=== PATIENT | female | born 1960 | race Caucasian/White ===

== ENCOUNTER 2018-12-03 10:36 | Observation (INO) ==
--- NOTE | 2018-12-03 13:34 | Diag Imaging Result Doc PS360 ---
EXAM: CT HEAD W/O CONTRAST INDICATION: dizziness TECHNIQUE: This exam was performed using automated exposure control, adjustment of mA or kV according to patient size, and/or use of iterative reconstruction technique. COMPARISON: None. FINDINGS: There is no definite acute infarct given the limited sensitivity of CT versus MRI. There is no discrete intracranial mass, mass effect, or intracranial hemorrhage. The surrounding soft tissues and bony structures are essentially unremarkable. IMPRESSION: No evidence of acute intracranial pathology. Electronically signed by James Webster 12/03/2018 1:32 PM
[2018-12-03 14:14] LABS: BASO# 0.05 X1000 (0.0-0.2); BASO% 0.3 % (0.0-0.8); EOS% 1.2 % (0.0-10.0); HEMATOCRIT 44.5 % (37.0-47.0); HEMOGLOBIN 14.8 g/dL (12.0-16.0); IMM GRAN# 0.27 X1000 (0.0-0.04); IMM GRAN% 1.6 % (0.0-0.5); LYMPH% 7.6 % (20.5-51.1); MCH 29.7 PG (27-31); MCHC 33.3 g/dL (33-37); MCV 89.2 FL (81-99); MONO# 0.82 X1000 (0.11-0.59); MONO% 4.8 % (1.7-9.3); MPV 11.5 FL (7.4-10.4); NEUT% 84.5 % (42.2-75.2); PLT 354 X1000 (130-400); RBC 4.99 XMIL (4.2-5.4); RDW 14.9 % (11.5-14.5); WBC 17.04 X1000 (4.8-10.8)
[2018-12-03] MEDS ORDERED: NS 1,000 ML IV ONE (14:18)
--- NOTE | 2018-12-03 14:18 | PROVIDER DOCUMENTATION ---
HPI-General Adult - General Chief Complaint: Fall Stated Complaint: FALL,DIZZINESS,SHAKING Time Seen by Provider: 12/03/18 13:09 Source: patient Allergies/Adverse Reactions: Patient Allergies Allergy/AdvReac Type Severity Reaction Status Date / Time No Known Allergies Allergy Verified 12/03/18 10:56 Home Medications: Home Medication List Medication Instructions Recorded Confirmed Last Taken Type Albuterol Sulfate [Ventolin Hfa] 18 gm INHALATION PRN PRN 12/03/18 12/03/18 Unknown History Atorvastatin Calcium 20 mg PO DAILY 12/03/18 12/03/18 Unknown History Budesonide/Formoterol Fumarate 10.2 gm INHALATION 4XDAY 12/03/18 12/03/18 Unknown History [Symbicort 160-4.5 Mcg Inhaler] Citalopram [Celexa] 40 mg PO DAILY 12/03/18 12/03/18 Unknown History Cyclobenzaprine [Flexeril] 10 mg PO PRN PRN 12/03/18 12/03/18 Unknown History Etodolac [Lodine] 400 mg PO BID 12/03/18 12/03/18 Unknown History Fexofenadine [Kenna] 180 mg PO DAILY 12/03/18 12/03/18 Unknown History Gabapentin [Neurontin] 300 mg PO BID 12/03/18 12/03/18 Unknown History Hydrocodone/APAP 7.5 mg/325 mg 2 ea PO BID 12/03/18 12/03/18 Unknown History [[place]-7.5] Lisinopril/Hydrochlorothiazide 1 tab PO DAILY 12/03/18 12/03/18 Unknown History [Zestoretic 20-12.5 mg Tablet] Lorazepam [Ativan] 0.5 mg PO PRN PRN 12/03/18 12/03/18 Unknown History Meloxicam [Mobic] 15 mg PO DAILY 12/03/18 12/03/18 Unknown History Metoprolol Tartrate 2 tab PO DAILY 12/03/18 12/03/18 Unknown History Montelukast Sodium [Singulair] 10 mg PO DAILY 12/03/18 12/03/18 Unknown History Omeprazole [Prilosec] 20 mg PO DAILY 12/03/18 12/03/18 Unknown History Tiotropium [place] [Spiriva 4 gm INHALATION BID 12/03/18 12/03/18 Unknown History Respimat] Tramadol [Ultram] 1 tab PO PRN PRN 12/03/18 12/03/18 Unknown History Vitamin A/Vitamin D3 [Natural Vit 1 ea PO DAILY 12/03/18 12/03/18 Unknown History D 400 Unit Softg] - History of Present Illness -Gen Adult Nature of Presenting Problems: 57 yr old F, hx of HTN, restless leg syndrome, presents with sudden onset generalized tremors and jerking that started yesterday. The patient states she was in the shower when her knees buckled and she fell. She denies LOC, dizziness, chest pain, headache. She reports that the jerking started in her arms bilaterally later one, and persisted this morning, causing her to drop two cups of coffee. She also reports falling two more times, continuing to deny dizziness, LOC, headache, chest pain. She reports being recently treated for a UTI (approximately 5 days ago), but has not started any new medication recently. She reports having blood work done at her PCP 3 months ago, and was told at the time that "all my numbers were good". Onset/Duration: reports: 24 hours ago Timing: reports: still present Similar Symptoms Previously?: No Recently seen or treated by another doctor?: No Review of Systems - Adult - REVIEW OF SYSTEMS - ADULT Constitutional: reports: no symptoms reported Eyes: reports: no symptoms reported Ears, Nose, Mouth & Throat: reports: no symptoms reported Cardiovascular: reports: no symptoms reported Respiratory: reports: no symptoms reported Gastrointestinal: reports: no symptoms reported Genitourinary: reports: dysuria Musculoskeletal: reports: frequent leg cramps Integumentary: reports: no symptoms reported Neurological: reports: tremors. denies: dizziness/vertigo, headache/migraines Past History - Adult - PAST MEDICAL HISTORY-ADULT Review of Records: reports: Old Records Reviewed, Nursing Assessment Review, Medications Reviewed Major Childhood Illnesses: reports: denies history Cardiovascular: reports: HTN Respiratory: reports: asthma Neurological: denies: CVA - SOCIAL HISTORY Smoking: denies Substance Use: denies Physical Exam-General - PHYSICAL EXAM-ADULT Initial Vital Signs Reviewed: Yes - CONSTITUTIONAL General Appearance: appears well, alert, no apparent distress - EYES Eyes: PERRL/EOMI - HEAD, EARS, NOSE, MOUTH & THROAT HENMT: normocephalic/atraumatic, moist mucous membranes - RESPIRATORY Respiratory: lungs clear, normal breath sounds - CARDIOVASCULAR Cardiovascular: regular rate, rhythm - GASTROINTESTINAL (ABDOMEN) Abdominal Exam: normal bowel sounds, non tender, soft - MUSCULOSKELETAL Extremity: normal gait, other (intermittent, subtle jerks and tremors of the upper extremities (fingers) noted) - SKIN Integumentary: warm/dry - NEUROLOGIC Neurologic: grossly normal, no motor/sensory deficits - PSYCHIATRIC Psych/Mental Status: normal mood/affect, oriented x 3 Progress - PLAN OF CARE/RESULTS Progress/Plan/Lab Results: Vital Signs - 8 hr 12/03/18 10:51 12/03/18 14:13 Temperature 98.3 F Pulse Rate 96 H Pulse Rate [Sitting] 94 H Pulse Rate [Standing] 95 H Pulse Rate [Supine] 92 H Respiratory Rate 22 Blood Pressure 108/59 Blood Pressure [Sitting] 112/66 Blood Pressure [Standing] 99/62 Blood Pressure [Supine] 103/57 O2 Sat by Pulse Oximetry 95 Laboratory Results - last 24 hr 12/03/18 13:56 WBC 17.04 H RBC 4.99 Hgb 14.8 Hct 44.5 MCV 89.2 MCH 29.7 MCHC 33.3 RDW Std Deviation 14.9 H Plt Count 354 MPV 11.5 H Immature Gran % (Auto) 1.6 H Neut % (Auto) 84.5 H Lymph % (Auto) 7.6 L [place] % (Auto) 4.8 Eos % (Auto) 1.2 Baso % (Auto) 0.3 Immature Gran # (Auto) 0.27 H Neut # (Auto) 14.40 H Lymph # (Auto) 1.30 [place] # (Auto) 0.82 H Eos # (Auto) 0.20 Baso # (Auto) 0.05 Orders Category Date Time Status Orthostatic Vital Signs NOW Care 12/03/18 13:16 Active CHEST-1 VIEW [RAD] Stat Exams 12/03/18 14:[address] HEAD W/O CONTRAST [CT] Stat Exams 12/03/18 13:15 Completed CBC WITH ELECTRONIC DIFF [HEME] Stat Lab 12/03/18 13:56 Completed CK PROFILE [SP CHEM] Stat Lab 12/03/18 13:58 Received COMPREHENSIVE METABOLIC PANEL [CHEM] Stat Lab 12/03/18 13:58 Received MAGNESIUM [CHEM] Stat Lab 12/03/18 13:58 Received PROTIME WITH INR [COAG] Stat Lab 12/03/18 13:56 Received PTT [COAG] Stat Lab 12/03/18 13:56 Received TROPONIN T Stat Lab 12/03/18 13:56 Received EKG [EKG] Stat Ther 12/03/18 13:15 Ordered Labs reveal elevated Bun/Cr, hyperkalemia, hyperphosphatemia. Spoke with Dr. Randolph and Yanci for the hospitalist admitting service. Discussed results and plan with the patient and her . They verbalized understanding and agreement. Result Diagrams: 12/03/18 13:56 12/03/18 13:56 - EKG 1 Time of EKG reading by physician:: 14:50 EKG Read and Signed by:: Lasha Vigil EKG Interpretation (*Must complete 3 of following elements*): Normal Rate: 93 Rhythm: sinus QRS: normal MI Interval: normal ST Wave: normal - CT/MRI 1 CT Study: Head Impression: See EMR Report (no acute findings) - CONSULTS/PCP/HOSPITALIST Notification #1 *Consult/PCP/Hospitalist*: Dr. Randolph Time Discussed: 15:00 Consult Disposition: other (will see pt in hospital tomorrow) #2 Consult: Yanci Time Discussed: 15:15 Consult Disposition: Admit Departure - Departure Date of Disposition Decision: 12/03/18 Time of Disposition Decision: 16:03 DIAGNOSIS: MAYA (acute kidney injury), Tremor Disposition: ADMITTED INPATIENT 09 Certified Medical Emergency: Emergent Condition: Fair Referrals and Follow-Ups: Luis Bustamante [Primary Care Provider] - - Critical Care Note This patient required my direct & personal management of CC.: No Attestation - Physician/ BELLO Attestation Patient care was provided by Advanced Practice Provider:: No The physician spent face to face time with patient:: Yes Advanced Practice Provider documentation review:: Supervising physician onsite and consulted in the evaluation and care of this patient. The physician did have a face to face encounter with the patient.
[2018-12-03 14:22] LABS: INR 1.01; PROTIME 13.4 Seconds (11.0-16.0)
[2018-12-03 14:23] LABS: PTT 25.9 Seconds (22.3-41.8)
[2018-12-03 14:35] LABS: ALBUMIN 3.1 g/dL (3.5-5.0); CALCIUM 7.9 mg/dL (8.8-10.2); CREATININE 5.6 mg/dL (0.5-0.9); MAGNESIUM 2.7 mg/dL (1.5-2.7); POTASSIUM 5.3 mmol/L (3.5-5.1); TOTAL BILIRUBIN 1.34 mg/dL (0.20-1.00); TOTAL PROTEIN 6.2 g/dL (6.3-8.3)
--- NOTE | 2018-12-03 14:56 | Diag Imaging Result Doc PS360 ---
EXAM: CHEST-1 VIEW INDICATION: fall TECHNIQUE: One view COMPARISON: 08/12/2017 FINDINGS: The lungs are grossly clear. There is no discrete pleural fluid collection or pneumothorax. The cardiomediastinal silhouette and central vasculature are grossly unremarkable. IMPRESSION: No evidence of acute pathology by plain radiograph. Electronically signed by James Webster 12/03/2018 2:54 PM
[2018-12-03] MEDS ORDERED: NORCO-7.5 PO PRN (15:21)
[2018-12-03] MEDS ORDERED: ZOFRAN IV PRN (15:21)
[2018-12-03] MEDS ORDERED: TYLENOL PO PRN (15:21)
[2018-12-03] MEDS ORDERED: VENTOLIN HFA INH PRN (15:21)
[2018-12-03 16:07] LABS: URINE SOURCE CLEAN CATCH
[2018-12-03 16:14] LABS: UR EPITHELIAL CELLS <10 /HPF (<10); URINE BACTERIA NEGATIVE /HPF; URINE RBC <10 /HPF (<10); URINE WBC TNTC /HPF (<10)
[2018-12-03 16:21] LABS: BILIRUBIN URINE MODERATE (NEGATIVE); BLOOD URINE TRACE (NEGATIVE); COLOR YELLOW; GLUCOSE URINE NEGATIVE (NEGATIVE); KETONE URINE NEGATIVE (NEGATIVE); LEUKOCYTES URINE LARGE (NEGATIVE); NITRITE URINE NEGATIVE (NEGATIVE); PROTEIN URINE 30 mg/dL (NEGATIVE); SP GRAVITY URINE 1.017; TURBIDITY URINE CLEAR (CLEAR); UROBILINOGEN URINE 2 mg/dL (NORMAL)
[2018-12-03 16:22] LABS: PROTEIN CREAT RATIO 0.3; UR CREAT RANDOM 98.8 mg/dL (11-20); UR PROT RANDOM 25.5 mg/dL
--- NOTE | 2018-12-03 16:34 | Diag Imaging Result Doc PS360 ---
EXAM: US RENAL 2 (RETROPER) COMPLETE INDICATION: renal failure TECHNIQUE: COMPARISON: None. FINDINGS: The kidneys are grossly normal in echotexture with no discrete renal mass or hydronephrosis. The right kidney measures 8.8 cm and the left kidney measures 11.3 cm in the greatest longitudinal axes. Right renal cortex measures 7 mm and the left renal cortex measures 9 mm in thickness. The urinary bladder is only slightly distended. It is grossly unremarkable, otherwise. The prevoid bladder volume is 17.2 cc. After voiding, the bladder was completely collapsed. IMPRESSION: Somewhat atrophic right kidney as compared to the left. Unremarkable renal ultrasound, otherwise. Electronically signed by James Webster 12/03/2018 4:32 PM
[2018-12-03] MEDS ORDERED: SYMBICORT 160/4.5 MICROGM INHALER INH SCH (17:00)
--- NOTE | 2018-12-03 17:55 | HISTORY AND PHYSICAL ---
PRIMARY CARE PROVIDER: Luis Bustamante MD. CHIEF COMPLAINT: More confused, muscle jerking, and tremors with fall since yesterday, strength down, having burning with urination. HISTORY OF PRESENT ILLNESS: Ms. Amy Willis is a 57-year-old female with a medical history of chronic pain syndrome, arthritis on chronic NSAID use, anxiety, seasonal allergies, GERD, asthma, restless legs syndrome, and kidney stones which she has been having issues with since 3 years ago, now presents with complaints that since yesterday she has had some short-term memory, some confusion, tremors, jerky movements in her arms, and she has had 2 falls with it, never hit her head. Still [place] when she has urination. Apparently she was treated with Cipro 5 days ago. She claims to have taken all of her antibiotics. Apparently last week she had some left flank pain and passed 3 kidney stones. She has been on all these medications that can be nephrotoxic. So, workup revealed that she has an acute kidney injury with a creatinine of 5.6 and back in September 2017 it was 1.2. She had an ultrasound of the kidneys which shows somewhat atrophic right kidney compared to the left but otherwise unremarkable. Dr. Randolph is aware of the patient's admission. We will give her IV fluids. We will hold nephrotoxic medications. She does have leukocytosis that could be reactive but she has white blood cells in her urine and she is complaining of burning with urination, so she probably has a urinary tract infection. PAST MEDICAL HISTORY: 1. CKD stage 3. Looks like her baseline creatinine is 1.2. 2. Chronic pain syndrome of the hips with arthritis. 3. Anxiety. 4. Seasonal allergies. 5. Hyperlipidemia. 6. Kidney stones that started around 3 years ago and just passed 3 last week. 7. Hypertension. 8. GERD. 9. Asthma. 10. Restless legs syndrome. PAST SURGICAL HISTORY: 1. section x2. 2. Bilateral rotator cuff repair. 3. Cholecystectomy. 4. Colonoscopy [address] Dumont. SOCIAL HISTORY: Denies tobacco, alcohol, or illicit drug use. Her of 37 years is at the bedside. She is a teacher for [employer]. She gets around with a cane at home. FAMILY HISTORY: Mother had coronary disease that started at the age of 65, along with cardiac stents. Father was in his 60s when he had coronary disease with cardiac stents. She had a brother that at the age of 2 from glioblastoma. ALLERGIES: Penicillin, reaction unknown. HOME MEDICATIONS: 1. [place] 180 mg p.o. daily. 2. Ativan 0.5 mg p.o. p.r.n. 3. Atorvastatin calcium 20 mg p.o. daily. 4. Celexa 40 mg p.o. daily. 5. Flexeril 10 mg p.o. p.r.n. 6. Lodine 400 mg p.o. twice a day. 7. Metoprolol tartrate 50 mg p.o. daily. 8. Mobic 15 mg p.o. daily. 9. Vitamin D once daily. 10. Neurontin 300 mg p.o. twice daily. 11. [place] 7.5 two tablets p.o. twice daily. 12. Prilosec 20 mg p.o. daily. 13. Singulair 10 mg p.o. daily. 14. Spiriva 4 mg inhaled twice a day. 15. Symbicort 160/4.5 inhaled 4 times a day. 16. Ultram 50 mg p.o. p.r.n. 17. Albuterol 18 g inhaled p.r.n. 18. Lisinopril/hydrochlorothiazide 20/12.5 mg 1 tablet p.o. daily. REVIEW OF SYSTEMS: Fourteen point review of systems are complete and all were negative except for those mentioned above in HPI. PHYSICAL EXAMINATION: VITAL SIGNS: Temperature 98.3 degrees, heart rate 96, respiratory rate 22, blood pressure 108/59, O2 saturation 95% on room air. GENERAL: Ms. Amy Willis is a 57-year-old female. She is in no acute distress. She is able answer most questions appropriately. HEENT: Atraumatic, normocephalic. Pupils equal, round, reactive to light. Extraocular movements intact. Mucous membranes are dry. NECK: Trachea midline. CARDIOVASCULAR: S1, S2. Regular rate and rhythm. No rubs, gallops, or murmurs. No lower extremity edema. There are +2 dorsalis and radial pulses. Negative JVD or carotid bruits. PULMONARY: Clear to auscultation. Bilateral breath sounds. No accessory muscle use or work of breathing noted. GI: Soft, nontender, nondistended. Positive bowel sounds x4. EXTREMITIES: Moves all extremities equally. Decreased range of motion. NEUROLOGIC: A O x3. Follows commands. Sensory is intact. SKIN: Warm, dry, intact. LABORATORY DATA: White blood cells 17,000, hemoglobin 14, hematocrit 44, platelet count 354,000. INR is 1.01. PTT is 25.9. Sodium 138, potassium 5.3, BUN 9, creatinine 5.6, glucose 104, calcium 7.9, phosphorus. 5.3, magnesium 2.7, bilirubin 1.34, AST 32, ALT 32, CK 38. Troponin less than 0.01. Albumin 3.1. Urinalysis, 30 protein, trace blood, moderate bilirubin, 2 urobilinogen. Dipstick: Large leukocytes, too numerous to count white blood cells, negative bacteria. Random creatinine of 98.8. Protein 25.2 on the urine with a protein creatinine ratio 0.3. IMAGING: Head CT negative. Chest x-ray negative for any acute findings. Renal ultrasound: Right kidney is atrophic compared to the left but otherwise negative for acute findings. ASSESSMENT AND PLAN: 1. Acute kidney injury on chronic kidney disease stage 3. It looks like her creatinine baseline is 1.2. She presents with a creatinine of 5.6 and uremic symptoms. She has jerky muscle, tremors, some mild confusion. She also has burning with urination and recently passed 3 kidney stones last week, that was after having left flank pain. On top of that, she also is on medications that can be nephrotoxic in a dehydration situation and she has diarrhea about once every 3 days. We will give her IV fluid hydration. We will do some urine studies. Her renal ultrasound shows somewhat of an atrophic right kidney compared to the left. necessarily there is no renal stenosis or medical renal disease. Hopefully with holding some of her medications and giving her IV fluids she will quickly rebound. 2. Kidney stones. She apparently passed 3 last week when she was having some left-sided flank pain and that has resolved. 3. Hypertension. We are going to hold some of her antihypertensives. 4. Hyperlipidemia. Will hold the statin for now. She actually has an elevated bilirubin and she is spilling a little bilirubin into the urine. 5. Hyperbilirubinemia. Currently just going to hold off on her statin and hopefully IV fluids will reverse that. 6. Asthma. No signs or symptoms of exacerbation. We will continue home medications for that. 7. Gastroesophageal reflux disease. Continue with Prilosec. Zofran if needed. 8. Anxiety. We will continue her Celexa. 9. Recent urinary tract infection. Still complains of burning with urination and she has leukocytosis. We will consider adding an antibiotic. She has a culture pending. Dictated by TIMMY Moraes for Miguel Ángel Polo MD cc: TIMMY Moraes MD MTD
[2018-12-03] MEDS ORDERED: LEVAQUIN 500 MG/D5W 500 MG/100 ML IVPB IV ONE (18:06)
--- NOTE | 2018-12-03 18:44 | EKG Report ---
Test Performed on : 12/03/2018 2:48:05 PM Test Reason : dizziness Blood Pressure : / mmHG Vent. Rate : 093 BPM Atrial Rate : 093 BPM P-R Int : 154 ms QRS Dur : 088 ms QT Int : 362 ms P-R-T Axes : 030 037 008 degrees QTc Int : 450 ms Normal sinus rhythm. Normal ECG No previous ECGs available Unconfirmed Result
[2018-12-03] MEDS ORDERED: LIPITOR PO SCH (21:00)
[2018-12-03] MEDS ORDERED: TIOTROPIUM BROMIDE 4 GM inhalation SCH (21:00)
[2018-12-03] MEDS: NS 1,000 ML IV SCH (21:43)
[2018-12-04] MEDS: ROCEPHIN 1 GM in NS 50 ML IV SCH (01:25)
[2018-12-04 07:25] LABS: BASO# 0.07 X1000 (0.0-0.2); BASO% 0.4 % (0.0-0.8); EOS# 0.32 X1000 (0.0-0.7); EOS% 1.9 % (0.0-10.0); HEMATOCRIT 41.9 % (37.0-47.0); HEMOGLOBIN 13.7 g/dL (12.0-16.0); IMM GRAN# 0.37 X1000 (0.0-0.04); IMM GRAN% 2.1 % (0.0-0.5); LYMPH# 1.54 X1000 (1.2-3.4); LYMPH% 8.9 % (20.5-51.1); MCH 29.3 PG (27-31); MCHC 32.7 g/dL (33-37); MCV 89.7 FL (81-99); MONO# 1.03 X1000 (0.11-0.59); MPV 11.7 FL (7.4-10.4); NEUT# 13.91 X1000 (1.4-6.5); NEUT% 80.7 % (42.2-75.2); PLT 343 X1000 (130-400); RBC 4.67 XMIL (4.2-5.4); RDW 14.9 % (11.5-14.5); WBC 17.24 X1000 (4.8-10.8)
[2018-12-04 07:37] LABS: ALB/GLOB RATIO 0.6; ALBUMIN 2.6 g/dL (3.5-5.0); CALCIUM 7.7 mg/dL (8.8-10.2); CREATININE 4.6 mg/dL (0.5-0.9); MAGNESIUM 2.3 mg/dL (1.5-2.7); POTASSIUM 4.6 mmol/L (3.5-5.1); TOTAL BILIRUBIN 0.98 mg/dL (0.20-1.00); TOTAL PROTEIN 6.6 g/dL (6.3-8.3)
--- NOTE | 2018-12-04 07:38 | EKG Report ---
Test Performed on : 12/04/2018 07:17:50 AM Test Reason : chest pain Blood Pressure : / mmHG Vent. Rate : 099 BPM Atrial Rate : 099 BPM P-R Int : 150 ms QRS Dur : 090 ms QT Int : 352 ms P-R-T Axes : 057 058 034 degrees QTc Int : 451 ms Normal sinus rhythm. Normal ECG When compared with ECG of 03-DEC-2018 14:48, (Unconfirmed) No significant change was found Confirmed by Kayode RAY, Krish Hancock ([id number]) on 12/06/2018 9:39:43 PM
[2018-12-04] MEDS: VITAMIN D PO SCH (08:12)
[2018-12-04] MEDS: CELEXA PO SCH (08:12)
[2018-12-04] MEDS: PRILOSEC PO SCH (08:12)
[2018-12-04] MEDS: NS 1,000 ML IV SCH ×5 (08:13→21:33)
--- NOTE | 2018-12-04 08:18 | PROGRESS NOTE ---
DATE: 12/04/2018 SUBJECTIVE: This patient feels much better compared with yesterday. She is not having jerking movements. As per the patient, she has not been confused, and she feels much better. Also, she states that she has been making urine, and she has been walking to the bathroom, but it looks like we are not monitoring the urine output, so I requested again a strict in and out on in this patient. OBJECTIVE: Vital Signs: Temperature 98.1 degrees, pulse 102, respiratory rate 16, blood pressure 122/64, oxygen saturation 99 on room air. HEENT: Head normocephalic. No trauma. PERRLA. Neck: Supple. No JVD. No masses. Central trachea. Chest: Clear to auscultation. No wheezing. No rales. Abdomen: Soft. Some tenderness to palpation at the level of the periumbilical area. Extremities: No edema, no clubbing, no cyanosis. Neurological: The patient is alert. She is oriented x3. No focal deficits. LABORATORY DATA: WBC 17.2, hemoglobin 13.7, hematocrit 41.9, platelets 343,000. Sodium 139, potassium 4.4, chloride 107, bicarbonate 18, BUN 83, creatinine 4.6, glucose 76, calcium 7.7, albumin 2.6. ASSESSMENT AND PLAN: 1. Acute kidney injury on chronic kidney disease. We have a previous creatinine result on 09/2017 that was 1.2. When she came in, it was 5.6, and today is 4.6, which is getting better. Also, she came in with a little bit of elevated potassium level, which is resolved. She is feeling better. I will continue with intravenous fluids. Nephrology Department on board. 2. Tremors with mild confusion, resolved. 3. History of kidney stones. Apparently, she passed 3 last week, and she was having some left flank pain, but that resolved. 4. Hypertension. She came in a little bit hypotensive. We are holding her blood pressure medications. She seems to be more stable. 5. Hyperlipidemia. We are holding the statin for now due to her elevated liver function tests. 6. Elevated liver function tests as above. Bilirubin level, AST, and alkaline phosphatase were elevated upon admission. Now has resolved, except the alkaline phosphatase that is 141, which is better. 7. History of asthma. Continue with the same management. No issues at this moment. 8. Gastroesophageal reflux disease. Continue with Prilosec and Zofran as needed. 9. Anxiety. Continue with Celexa. 10. Recent urinary tract infection. She is still complaining of burning sensation with urination, and she has leukocytosis, elevated white blood cell in the urine as well. She has been placed on ceftriaxone for now. Blood culture and urine culture are negative. cc: Miguel Ángel Polo MD
[2018-12-04 08:20] LABS: INR 1.02; PROTIME 13.5 Seconds (11.0-16.0)
[2018-12-04 08:21] LABS: PTT 27.5 Seconds (22.3-41.8)
[2018-12-04] MEDS: ALLEGRA PO SCH (11:02)
[2018-12-04] MEDS: SINGULAIR PO SCH (11:02)
[2018-12-04 20:00] LABS: UR PROT RANDOM 12.1 mg/dL
--- NOTE | 2018-12-04 20:51 | NEPHROLOGY CONSULTATION ---
DATE: 12/04/2018 REASON FOR ADMISSION: Confusion with recent falls, muscle tremors and burning with urination . REASON FOR CONSULT: Evaluate and treat acute kidney injury. CONSULTING PHYSICIAN: Dr. Skye Paniagua. TIME SEEN: 729 HPI: Ms Willis is a 57-year-old white female who is currently resting in bed. She is forgetful to most recent events. States that she has a history of chronic pain syndrome recently started on gabapentin for right hip pain. She has arthritis and takes chronic nonsteroidal anti-inflammatory disease medications, history of anxiety and seasonal allergies, GERD, asthma, restless legs syndrome, previous history of renal stones back in 2016 she states she passed. She presented with a history of a urinary tract infection 2 weeks ago. States that her physician had treated her with 5 days of antibiotic, these are unknown, started her on gabapentin approximately 1 year ago for her hip pain. She states that she has been unable to eat and drink for approximately 3 to 4 days and has had recent falls with confusion and tremors. States that it austin on urination even though she finished her antibiotic last week. 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 She presented to [facility] Emergency Department and was found to have acute kidney injury, creatinine of 5.6 with a baseline creatinine of 1.2 approximately 1 year ago. Renal ultrasound shows that she has a somewhat atrophic right kidney compared to the left otherwise unremarkable. No hydronephrosis present. The patient was started on normal saline at 125 mL an hour of IV fusion with labs this a.m. for repeat. She has had her gabapentin stopped. She is currently on Rocephin IV renally dosed. Home medications of lisinopril hydrochlorothiazide are currently on hold appropriately, her Mobic has been stopped and her gabapentin had been stopped. She currently states that she has continued nausea, no emesis, austin on urination continues, states that she is unaware of a fever though she has had chills. PAST MEDICAL HISTORY: Chronic kidney disease stage 3 baseline creatinine 1.2 a year ago, chronic pain syndrome with hips and arthritis takes gabapentin and Letart, anxiety, seasonal allergies, hyperlipidemia, previous kidney stones that she passed diagnosed 3 years ago, hypertension, GERD, asthma and restless legs syndrome. PAST SURGICAL HISTORY: She has had a section x2, bilateral rotator cuff repair, cholecystectomy, colonoscopy [address] Dumont. SOCIAL HISTORY: She is , she lives with her of 37 years. She is a tmd teacher assistant. Denies tobacco, alcohol or illicit drug use. Uses a cane at home. FAMILY HISTORY: Mother had coronary artery disease started at the age of 65 with cardiac stents. Father in his 60s with coronary artery disease and cardiac stents. Brother at the age of 2 from glioblastoma. No kidney disease present. ALLERGIES: Listed as penicillins reaction unknown. HOME MEDICATIONS: Kenna, Ativan, atorvastatin, Celexa, Flexeril, Lodine, metoprolol tartrate, Mobic, vitamin D, Neurontin, Letart, Prilosec, Singulair, Spiriva, Symbicort, Ultram, albuterol, lisinopril hydrochlorothiazide. REVIEW OF SYSTEMS: Times 10 with pertinent positives listed above in the HPI.Vital Signs: Prior to her exam showed a temperature of 98.2 degrees, blood pressure 113/66, heart rate 95, respirations are 15, she is on room air last recorded saturation 98%. She has had 1877 in, she only had 30 mL out to record. We have requested a strict I and I. Patient's current labs sodium 139, potassium 4.6, chloride 107, CO2 18, BUN 83, creatinine 4.6, glucose is 76, her anion gap is 14, her calcium is 7.7, magnesium of 2.3 with an albumin of 2.6. TSH is 2.06. White count 17.24, hemoglobin 13.7, hematocrit 41.9 with a platelet count of 343,000. Her pro time is 13.5, INR 1.02, PTT 27.5. Urine clean catch has shown no growth in the 1st 24 hours. Patient had a renal ultrasounds that indicated her right kidney measuring 8.8, left measuring 11.3, somewhat atrophic on the right compared to the left, no hydronephrosis. Bladder scan indicated volume of 17.2 mL at the time of the ultrasound. PHYSICAL EXAMINATION: General: This is a 57-year-old white female resting quietly in bed. She is slightly confused as to most recent events. Complains of shaking and trembling hands. Skin: Warm and dry. HEENT: Normocephalic, atraumatic. Conjunctiva is pale. She has LINDSAY. Mucous membranes are dry. Neck: Supple. Trachea midline. She does have positive JVD with a positive hepatojugular reflux. Cardiovascular: Regular rate and rhythm. She is slightly tachycardic 95 to 100 on her monitor. No murmur or gallop appreciated. Lungs: Clear to auscultation bilaterally. Equal excursion, she is on room air. Abdomen: Slightly distended, nontender. Positive bowel sounds. Genitourinary: Patient has been voiding. We have requested that they keep a strict I and O secondary to her acute kidney injury diagnosis. Extremities: Have trace edema, no clubbing or cyanosis. Neurological: Patient has positive asterixis to her upper extremities. No other tremors noted. Alert and oriented x3. ASSESSMENT AND PLAN: 1. Acute kidney injury on chronic kidney disease stage 3. Patient's baseline creatinine 1 year ago is 1.2. Her creatinine is down to 4.6 with a BUN of 83 on labs today. We have had no documentation of urine output. We will order another bladder scan to evaluate urine. Encouraged staff to keep a strict I and O. Will reevaluate patient's labs and intake and output in the a.m. Patient has had urine electrolytes on admission though we are only have a urine creatinine and not a urine sodium. We have ordered a repeat of this at this time. 2. Electrolytes and acid-base balance. These are acceptable. 3. Anemia. This is close to stable target. 4. Leukocytosis. This may be related to patient's urinary tract infection. She remains on Rocephin renally dosed. Like to thank you for allowing us to follow with this patient. Dictated by TIMMY Ramsey for Josiah Randolph MD Face to face encounter, data reviewed, discussed with Sosa Puga on 12/05/18. I agree with the above assessment and plan of care. cc: TIMMY Ramsey MD [facility]
[2018-12-05] MEDS: ROCEPHIN 1 GM in NS 50 ML IV SCH (00:46)
[2018-12-05] MEDS: NS 1,000 ML IV SCH ×2 (01:16→06:02)
[2018-12-05 06:39] LABS: BASO# 0.07 X1000 (0.0-0.2); BASO% 0.5 % (0.0-0.8); EOS# 0.33 X1000 (0.0-0.7); EOS% 2.5 % (0.0-10.0); HEMATOCRIT 39.3 % (37.0-47.0); HEMOGLOBIN 13.3 g/dL (12.0-16.0); IMM GRAN# 0.47 X1000 (0.0-0.04); IMM GRAN% 3.6 % (0.0-0.5); LYMPH# 1.31 X1000 (1.2-3.4); LYMPH% 9.9 % (20.5-51.1); MCH 30.3 PG (27-31); MCHC 33.8 g/dL (33-37); MCV 89.5 FL (81-99); MONO% 8.4 % (1.7-9.3); MPV 11.2 FL (7.4-10.4); NEUT# 9.89 X1000 (1.4-6.5); NEUT% 75.1 % (42.2-75.2); PLT 300 X1000 (130-400); RBC 4.39 XMIL (4.2-5.4); RDW 14.6 % (11.5-14.5); WBC 13.17 X1000 (4.8-10.8)
[2018-12-05 07:08] LABS: ALBUMIN 2.1 g/dL (3.5-5.0); CALCIUM 7.5 mg/dL (8.8-10.2); POTASSIUM 4.8 mmol/L (3.5-5.1)
[2018-12-05] MEDS: PRILOSEC PO SCH (09:48)
[2018-12-05] MEDS: VITAMIN D PO SCH (09:48)
[2018-12-05] MEDS: CELEXA PO SCH (09:48)
[2018-12-05] MEDS: ALLEGRA PO SCH (09:48)
[2018-12-05] MEDS: SINGULAIR PO SCH (09:48)
[2018-12-05 11:51] VITALS: BP 133/70
--- NOTE | 2018-12-05 16:52 | ECHO REPORT ---
ORDER DATE: 12/03/2018 INTERPRETING PHYSICIAN: Edd Ba MD. CLINICAL INDICATIONS: Dizziness. M-MODE MEASUREMENTS: Left ventricle end diastole: 4.0 cm. Left ventricle end systole: 2.8 cm. Posterior wall: 0.8 cm. Interventricular septum: 0.8 cm. Left atrium: 3.8 cm. Aortic diameter: 2.5 cm. SUMMARY OF 2-DIMENSIONAL IMAGIN. Left ventricular systolic function is normal. Ejection fraction is estimated within the range of 65% to 70%. There is no wall motion abnormality. 2. The right ventricle appears to be grossly normal. 3. The left atrium appears to be normal. 4. The aortic valve appears to be within normal limits. 5. The mitral valve also appears to be within normal limits. Color flow mapping is unremarkable. 6. Pulsed wave Doppler of mitral inflow is normal. 7. Tissue Doppler of septal and lateral mitral annulus averages 5 cm. 8. There is impaired ventricular relaxation. 9. Pulmonic valve is normal. Color flow mapping is unremarkable. 10.The tricuspid valve is unremarkable. 11.Pulmonary pressure appears to be grossly within normal limits. 12.There is no pericardial effusion, no mass, and no thrombus. Clinical correlation is recommended. cc: MD Yanci Murguia CRNP
[2018-12-05] MEDS ORDERED: LEVAQUIN 250 MG/D5W 250 MG/50 ML IVPB IV SCH (18:15)
--- NOTE | 2018-12-05 20:26 | NEPHROLOGY PROGRESS NOTE ---
DATE: 12/05/2018 SUBJECTIVE: Ms. Willis is resting quietly in bed. She denies any complaints. States that she is feeling better. OBJECTIVE: Vital Signs: Temperature 98.4 degrees, blood pressure 122/72, heart rate 101, respirations 20, she is on room air, last recorded saturation of 96%, she has had 3277 in, she has had 0 recorded out though she states she has been voiding. LAB: Sodium 144, potassium 4.8, chloride 115, CO2 14, BUN 61, creatinine 3, glucose 82, anion gap 15, calcium 7.5, phosphorus 4, albumin 2.1, white count 13.17, hemoglobin 13.3, hematocrit 39.3 with a platelet count of 300,000. Patient CPK yesterday was 34. Her FENa score was 4.94%. PHYSICAL EXAM: General: This is a 57-year-old white female resting quietly in bed. States that she is feeling much better. No complaints. Skin: Warm and dry. HEENT: Normocephalic, atraumatic. Conjunctivae pale. She has LINDSAY. Mucous membranes dry. Neck: Supple. Trachea midline. No JVD today in the upright position. Cardiovascular: She is regular rate and rhythm, she is slightly tachycardic. Skin is warm and dry. Lungs: Clear to auscultation bilateral. Equal excursion on room air. Abdomen: Large, round, soft, nontender, positive bowel sounds. Genitourinary: Not inspected. Patient states that she has been voiding. Requested to keep strict I's and O's. Extremities: Have trace edema. No clubbing or cyanosis. Neurological: She is alert and oriented x3. Her asterixis tremors to her upper extremities have improved. ASSESSMENT AND PLAN: 1. Acute kidney injury on chronic kidney disease stage 3. Patient's baseline creatinine is 1.2. Creatinine is now down to 3 with a BUN of 61. She states that she has been voiding adequate amounts. 2. Electrolytes and acid-base balance, these are stable. 3. Anemia, this is in target. 4. Leukocytosis. The patient has been treated for urinary tract infection during her hospital stay. PLAN: We will request that the patient follow up in our office within 3 to 4 weeks of discharge or with her primary care in regards with monitoring the return of her creatinine to her baseline. Continue to monitor her electrolytes and follow up on a urinary tract infection. Like to thank you for allowing us to follow with this patient. Dictated by TIMMY Ramsey for Josiah Randolph MD Face to face encounter, data reviewed, discussed with Sosa Puga on 12/05/18. I agree with the above assessment and plan of care. cc: TIMMY Ramsey MD [facility]
--- NOTE | 2018-12-06 11:04 | DISCHARGE SUMMARY ---
ADMISSION DATE: 12/03/2018 DISCHARGE DATE: 12/05/2018 CONSULTATIONS: Dr. Randolph with nephrology. PRIMARY PROCEDURES: 1. Renal ultrasound, somewhat atrophic right kidney as compared to the left, unremarkable renal ultrasound otherwise. 2. Head CT, no evidence of acute intracranial pathology. DISCHARGE DIAGNOSES: 1. Acute kidney injury on chronic kidney disease stage 3, improved. The patient will be discharged to follow up with Dr. Randolph in 1 week. 2. Tremors with mild confusion, resolved. 3. History of kidney stones. The patient passed three last week and was having some left flank pain but that has also resolved as well. 4. Hypertension. The patient was somewhat hypotensive throughout her hospital stay. Her blood pressure medicines were initially held. She has improved and is more stable. 5. Hyperlipidemia. We held the statin for elevated liver function tests. 6. Transaminitis, completely resolved. 7. History of asthma, with no issues. 8. Gastroesophageal reflux disease. Continue proton pump inhibitor. 9. Anxiety. Continue Celexa. 10. Recent urinary tract infection. The patient was placed on intravenous ceftriaxone and will be discharged home on oral Levaquin. HOSPITAL COURSE: Briefly, Ms. Willis is a 57-year-old, female who carries a past medical history of chronic pain syndrome, recently started on gabapentin for right hip pain, arthritis, takes chronic NSAIDs, anxiety, seasonal allergies, GERD, asthma, restless leg syndrome, previous history of renal stones, recently passed three, as well as recently being treated for a urinary tract infection. She presented to [facility] ED and was found to have an acute kidney injury with a creatinine of 5.6. Her baseline was around 1.2 one year ago. Her renal ultrasound showed a somewhat atrophic right kidney. She was initiated on IV fluids with aggressive hydration and placed on IV ceftriaxone for her urinary tract infection. Held her home blood pressure medications secondary to hypotension, as well as her statin due to some elevated transaminitis. Those have all completely resolved. She has been evaluated with Dr. Randolph with nephrology. Her creatinine had come down to 3. Her electrolytes and acid bases have remained acceptable, as well as her anemia, and she will be discharged home to follow up with Dr. Randolph in 1 week. VITAL SIGNS: At the time of her discharge, temperature is 98 degrees, heart rate 99, respirations 16, blood pressure 133/70, O2 is 98% on room air. DISCHARGE DIET: Renal. DISCHARGE MEDICATIONS: 1. Kenna 180 mg p.o. daily. 2. Ativan 0.5 mg p.o. p.r.n. 3. Celexa 40 mg p.o. daily. 4. Flexeril 10 mg p.o. p.r.n. 5. Metoprolol 25 mg 2 tablets p.o. daily. 6. Natural Vitamin D one each p.o. daily. 7. Henderson 7.5 two each p.o. b.i.d. 8. Prilosec 20 mg p.o. daily. 9. Singulair 10 mg p.o. daily. 10. Spiriva 4 g inhaled b.i.d. 11. Symbicort 10.2 g inhaled 4 times a day. 12. Albuterol sulfate 18 g inhaled p.r.n. 13. Levaquin 500 mg p.o. daily for 5 days. 14. Tylenol 650 mg p.o. q.6 hours p.r.n. FOLLOWUP: Ms. Willis is being discharged back home. She is to follow up with Dr. Randolph on 12/25/2018 at 1330, as well as her primary care provider, Dr. Luis Bustamante. She is to take all medications as prescribed. She can return to the ED or call 911 for any worsening of symptoms. Dictated by TIMMY Lopez for Miguel Ángel Polo MD cc: MD Josiah Baig MD Chad McElroy, MD
== END 2018-12-05 14:41 | disposition home or self-care (01) ==
LOC: ED 10:36 → INTOOBSV 10:37 → EDIPHOLD 10:37 → 4N 19:35
PROVIDERS: ATTEND Internal Medicine